=== PATIENT | female | born 1930 | race Caucasian/White ===

== ENCOUNTER 2017-08-13 03:07 | Inpatient (IN) | payer MEDICARE, BC ==
[~2017-08-13] VITALS: Ht 162.6 cm; Wt 61.0 kg
[2017-08-13] MEDS ORDERED: CIPR500T5 PO (03:39)
[2017-08-13] MEDS ORDERED: ALBU18HF2 INH (03:39)
[2017-08-13] MEDS ORDERED: HYDR25TA4 PO (03:39)
[2017-08-13] MEDS ORDERED: METH4TAB16 PO (03:39)
[2017-08-13 04:30] VITALS: BP 166/86
--- NOTE | 2017-08-13 04:40 | NUR ---
Pt. admitted to MHU, under care of Dr. MILLER Belongs List completed
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
[2017-08-13 07:30] VITALS: BP 164/60
[2017-08-13] MEDS: ACETAMINOPHEN 325 MG TABLET PO PRN ×2 (13:16→21:10)
[2017-08-13] MEDS: ESCITALOPRAM OXALATE 10 MG TABLET PO SCH (13:17)
[2017-08-13] MEDS: LORAZEPAM 0.5 MG TABLET PO PRN (13:18)
[2017-08-13] MEDS ORDERED: CLONIDINE HCL 0.1 MG TABLET PO PRN (15:45)
[2017-08-13] MEDS ORDERED: DEXTROSE 50% 50 ML DISP.SYRIN IV PRN (15:45)
[2017-08-13] MEDS: BENAZEPRIL HCL 10 MG TABLET PO SCH (17:45)
[2017-08-13] MEDS: BLOOD SUGAR DIAGNOSTIC 1 EACH STRIP VI SCH ×2 (17:45→20:25)
[2017-08-13] MEDS: INSULIN REGULAR, HUMAN 300 UNIT/3 ML VIAL SQ PRN ×2 (17:55→20:27)
--- NOTE | 2017-08-13 18:20 | NUR ---
EKG ordered, pt has asked to do later and come back later x3.. Now pt is done eating but upset about the food, sts needs time to calm down, CARO Ward notified and aware.. will endorse to NOC shift
[2017-08-13 20:00] VITALS: BP 135/73
[2017-08-13] MEDS: ZOLPIDEM 5 MG TABLET PO PRN (21:11)
--- NOTE | 2017-08-13 22:00 | NUR ---
received to care, lying in bed, confused, but pleasant upon approach. attempted to get out of bed and ambulate in the hallway. staff observed her to be unsteady, so she was placed in the mary chair in the hallway for safetry. she allowed an ekg to be done. PRN ambien was given for insomnia, at 2110, as was PRN tylenol, for left flank pain, 11/08. as of 2199, she is in bed. appears to be asleep. no distress noted. will continue to monitor closely.
--- NOTE | 2017-08-14 02:00 | NUR ---
pt is now awake. assisted to the bathroom, and back to bed. pt is now wheezing. o2 sat is 96% resp 21. denies any shortness of breath, but states she was earlier. HOB elevated. will continue to monitor closely.
[2017-08-14] MEDS: BLOOD SUGAR DIAGNOSTIC 1 EACH STRIP VI SCH ×4 (06:35→21:00)
[2017-08-14 07:13] LABS: BASOPHILS # (AUTO) 0.2 K/uL (0.0-8.0); BASOPHILS % (AUTO) 1.3 % (0.0-2.0); EOSINOPHILS # (AUTO) 0.2 K/uL (0.0-0.7); EOSINOPHILS % (AUTO) 1.4 % (0.0-7.0); HEMATOCRIT 38.6 % (31.2-41.9); LYMPHOCYTES # (AUTO) 3.3 K/uL (20.0-40.0); MEAN CORPUSCULAR HGB CONC 34 g/dL (32.3-35.6); MEAN CORPUSCULAR VOLUME 86.4 fL (75.5-95.3); MONOCYTES % (AUTO) 8.2 % (0.0-11.0); NEUTROPHILS # (AUTO) 7.3 K/uL (1.8-8.9); NEUTROPHILS % (AUTO) 61.1 % (38.5-71.5); PLATELET COUNT (AUTO) 224 K/uL (179-408); RED BLOOD CELL COUNT(AUTO) 4.46 MIL/uL (3.63-4.92); WHITE BLOOD COUNT (AUTO) 11.9 K/uL (3.8-11.8)
[2017-08-14 07:30] VITALS: BP 167/79
[2017-08-14 07:34] LABS: THYROID STIMULATING HORMONE 3.414 mIU/mL (0.358-3.740)
[2017-08-14 07:54] LABS: ALANINE AMINOTRANSFERASE 22 U/L (14-59); ALKALINE PHOSPHATASE 71 U/L (50-136); ASPARTATE AMINOTRANSFERASE 20 U/L (15-37); BILIRUBIN,TOTAL 0.5 mg/dL (0.2-1.0); CARBON DIOXIDE 26 mmol/L (21-32); CHLORIDE 100 mmol/L (98-107); CHOLESTEROL 135 mg/dL (<200); CREATININE 0.8 mg/dL (0.6-1.3); GLUCOSE 169 mg/dL (74-106); HDL CHOLESTEROL 58 mg/dL (40-60); MAGNESIUM 1.9 mg/dL (1.8-2.4); PHOSPHOROUS 3.2 mg/dL (2.5-4.9); POTASSIUM 4.1 mmol/L (3.5-5.1); TOTAL PROTEIN, SERUM 6.3 g/dL (6.4-8.2); TRIGLYCERIDES 71 MG/DL (30-150); UREA NITROGEN, BLOOD 17 mg/dL (7-18)
[2017-08-14] MEDS: INSULIN REGULAR, HUMAN 300 UNIT/3 ML VIAL SQ PRN ×5 (08:17→22:14)
[2017-08-14] MEDS: ESCITALOPRAM OXALATE 10 MG TABLET PO SCH (08:19)
[2017-08-14] MEDS: BENAZEPRIL HCL 10 MG TABLET PO SCH (08:19)
[2017-08-14] MEDS: LORAZEPAM 0.5 MG TABLET PO PRN ×3 (09:10→22:06)
--- NOTE | 2017-08-14 09:20 | NUR ---
Gps/Electrical Development Engineer- Received report from [facility]. patient positive for MRSA of nares. , Dr Bradshaw was called, message was left, waiting for return call.Charge was also informed.
--- NOTE | 2017-08-14 11:29 | NUR ---
Initial Discharge Instructions: Patient currently lives at home alone [[address], [place] [address]; [phone]]. Per pt, she is fearful that she will be "put in a home," and wants to "be as independent as possible." Pt expressed wishes to return home, but was willing to accept Home Health if ordered. Spoke with pt's DPOA, Yanet Sarabia ([phone]) who would like the pt to be as supported as possible. Spoke with pt's neighbor and friend, Paige ([phone]) who expressed that the pt would not want to go to a SNF. SW will continue to collaborate with the pt, support system, and MD regarding appropriate discharge plans for this patient. SW will form a safe and proper discharge plan.
--- NOTE | 2017-08-14 12:06 | NUR ---
Firearms Report: Associate Professor Of Library Media completed and submitted [employer] Firearms Report on 08/14/17.
--- NOTE | 2017-08-14 15:00 | NUR ---
Gps/Division Supervisor- Per Charge Nurse [facility] Dr Bradshaw was made aware of EKG results as well as CXR results .
[2017-08-14 16:00] VITALS: BP 171/73
--- NOTE | 2017-08-14 17:30 | NUR ---
Gps/Classroom Instructor- Stayed in the activity room, watching TV interacting with some of her peers, wearing facial mask on, occ. reminded to keep her facial mask on, bactoban kd. to bilateral nares applied.
--- NOTE | 2017-08-14 18:18 | NUR ---
Gps/Patrol Sergeant- Patient will be transfer to room #224 when room available
[2017-08-14] MEDS: MUPIROCIN 2% OINT 22 GM TUBE NS SCH (21:00)
[2017-08-14 22:00] VITALS: BP 122/60
[2017-08-15 05:00] VITALS: BP 148/65
[2017-08-15] MEDS: BLOOD SUGAR DIAGNOSTIC 1 EACH STRIP VI SCH ×4 (06:27→21:23)
[2017-08-15] MEDS: ACETAMINOPHEN 325 MG TABLET PO PRN ×3 (06:28→21:21)
--- NOTE | 2017-08-15 06:34 | NUR ---
END OF SHIFT SUMMERY: upon receiving the patient, she was agitated and confused A&O X 2. , reorientation provided and ativan was given as prescribed. Pt rested in bed, no distress or SOB noted. pt slept almost 7 hours. sitter 1:1 was maintained all the time. will continue to monitor and endorse patient to the next nurse to cont the care.
--- NOTE | 2017-08-15 06:47 | NUR ---
NURSING CLINICAL NOTE: blood sugar is 166 mg/dl. Will endorse it to the next nurse to follow up.
[2017-08-15] MEDS: ESCITALOPRAM OXALATE 10 MG TABLET PO SCH (08:24)
[2017-08-15] MEDS: BENAZEPRIL HCL 10 MG TABLET PO SCH (08:24)
[2017-08-15] MEDS: INSULIN REGULAR, HUMAN 300 UNIT/3 ML VIAL SQ PRN ×4 (08:29→21:22)
[2017-08-15] MEDS: MUPIROCIN 2% OINT 22 GM TUBE NS SCH ×2 (08:37→21:21)
[2017-08-15 12:12] VITALS: BP 130/60
[2017-08-15] MEDS: LORAZEPAM 0.5 MG TABLET PO PRN (13:23)
--- NOTE | 2017-08-15 14:15 | NUR ---
Patient has been asking about her personal belongings, explained that all her personal belongings are kept/locked at the 1st floor (MHU) for safety, daughter is aware and unable to pickle solution maker her mother's belongings.
[2017-08-15 16:22] VITALS: BP 123/45
--- NOTE | 2017-08-15 18:56 | NUR ---
Patient is on a 5150 HOLD for gravely disabled, expires 08/28/17. Patient is on a 1:1 sitter for safety. Patient is resting in bed, in no distress. Patient occasionally gets agitated, redirectable. Patient is compliant with patient care and medications, adequate meal/fluid intake. Accuchecks done as ordered. Safety measures in place, bed alarm on.
[2017-08-15 21:05] VITALS: BP 145/68
[2017-08-16 03:01] LABS: *BILIRUBIN,URIN NEGATIVE (NEGATIVE); *BLOOD, URINE 1+ (NEGATIVE); *CLARITY,URINE CLOUDY (CLEAR); *COLOR,URINE YELLOW (YELLOW); *KETONES,URINE NEGATIVE (NEGATIVE); *PROTEIN,URINE NEGATIVE (NEGATIVE); *UROBILINOGEN,URINE 0.2 E.U./dl (NORMAL); LEUKOCYTE ESTERASE ,URINE 3+ (NEGATIVE); NITRITE, URINE NEGATIVE (NEGATIVE); UGLUCOSE NEGATIVE (NEGATIVE)
[2017-08-16 03:14] LABS: BACTERIA,URINE MANY /HPF (NONE SEEN); SQUAMOUS EPITHELIAL CELL,UR FEW /HPF (NONE SEEN); WBC,URINE TNTC /HPF (0-3)
[2017-08-16 04:02] VITALS: BP 149/73
--- NOTE | 2017-08-16 05:36 | NUR ---
NURSING CLINICAL NOTE: urine sample sent to the lab, results received, Charge nurse made aware. will endorse it the next nurse to follow up.
--- NOTE | 2017-08-16 06:45 | NUR ---
END OF SHIFT SUMMERY: Pt is calm and cooperative throughout the night, complained of mild headache managed with tylenol. no acute distress noted. sitter 1:1 is maintained all the time. the latest BS reading is 170 mg/dl will endorse it to next nurse to follow up.
[2017-08-16] MEDS: BLOOD SUGAR DIAGNOSTIC 1 EACH STRIP VI SCH ×4 (06:48→20:30)
[2017-08-16] MEDS: METFORMIN HCL 500 MG TABLET PO SCH ×2 (08:04→17:10)
[2017-08-16] MEDS: ESCITALOPRAM OXALATE 10 MG TABLET PO SCH (08:04)
[2017-08-16] MEDS: BENAZEPRIL HCL 10 MG TABLET PO SCH (08:05)
[2017-08-16] MEDS: INSULIN REGULAR, HUMAN 300 UNIT/3 ML VIAL SQ PRN ×4 (08:14→20:39)
[2017-08-16] MEDS: MUPIROCIN 2% OINT 22 GM TUBE NS SCH ×2 (08:28→20:39)
--- NOTE | 2017-08-16 09:11 | NUR ---
MD notified regarding abnormal labs/urine result and bowel regulation. No new orders received at this time. Will continue to monitor.
[2017-08-16 11:36] VITALS: BP 141/55
[2017-08-16] MEDS: LORAZEPAM 0.5 MG TABLET PO PRN (13:31)
[2017-08-16] MEDS: GUAIFENESIN LA 600 MG TABLET.SA PO SCH ×2 (13:31→20:26)
[2017-08-16] MEDS: LEVOFLOXACIN 500 MG TABLET PO SCH (13:31)
[2017-08-16] MEDS: ACETAMINOPHEN 325 MG TABLET PO PRN (15:30)
[2017-08-16 17:16] VITALS: BP 144/64
--- NOTE | 2017-08-16 18:21 | NUR ---
Pt resting in bed, in no distress, c/o of slight discomfort on the left rib, pain medication administered as ordered. Productive cough noted, no SOB, VS stable, afebrile. Patient gets agitated at times, anxious of going home. No other behavioral issues throughout the shift, pt is compliant with patient care and medications. 1:1 sitter provided for safety, bed alarm on.
--- NOTE | 2017-08-16 18:22 | NUR ---
Pt is on 5150 for gravely disabled, expires 08/28/17.
[2017-08-16 19:00] VITALS: BP 145/70
--- NOTE | 2017-08-16 19:50 | NUR ---
RECEIVED PATIENT IN BED, AWAKE, HYPER VERBAL, WANTING TO GO HOME, CONT ON 1;1 SITTER FOR SAFETY, ASSISTED WITH TOILETING, CONT TO MONITOR.
[2017-08-17] MEDS: LORAZEPAM 0.5 MG TABLET PO PRN ×2 (00:09→19:12)
[2017-08-17] MEDS ORDERED: LORAZEPAM 2 MG/1 ML VIAL IM PRN (00:30)
[2017-08-17] MEDS ORDERED: chlorproMAZINE 50 MG/2 ML AMPUL IM ONE (00:30)
--- NOTE | 2017-08-17 00:42 | NUR ---
PATIENT BECOME VERY AGITATED PUNCHING AND KICKING THE SITTER, RESIST CARE, YELLING AND SCREAMING. DR. JASMINE NOTIFIED WITH ORDER.
[2017-08-17] MEDS ORDERED: chlorproMAZINE 50 MG/2 ML AMPUL ONE (00:56)
[2017-08-17 01:05] VITALS: BP 140/65
[2017-08-17 03:59] VITALS: BP 138/59
[2017-08-17] MEDS: BLOOD SUGAR DIAGNOSTIC 1 EACH STRIP VI SCH ×4 (06:23→20:56)
--- NOTE | 2017-08-17 06:30 | NUR ---
PATIENT SLEPT FOR 7 HOURS, PATIENT CALM DOWN AFTER HALF HOURS AFTER PRN MEDICATIONS, PATIENT HAS NO S/S OF ADVERSE REACTION NOTED, CONT 1;1 SITTER FOR SAFETY, CONT TO MONITOR.
[2017-08-17] MEDS: METFORMIN HCL 500 MG TABLET PO SCH ×2 (08:00→17:37)
[2017-08-17] MEDS: GUAIFENESIN LA 600 MG TABLET.SA PO SCH ×2 (08:20→20:56)
[2017-08-17] MEDS: BENAZEPRIL HCL 10 MG TABLET PO SCH ×2 (08:20→19:12)
[2017-08-17] MEDS: MUPIROCIN 2% OINT 22 GM TUBE NS SCH ×2 (08:20→20:57)
[2017-08-17] MEDS: ESCITALOPRAM OXALATE 10 MG TABLET PO SCH (08:20)
--- NOTE | 2017-08-17 08:21 | NUR ---
PT IS LABILE, AGITATED, DEMANDING CLOTHES AND PURSE TO [facility] FROM THE HOSPITAL. PT REFUSING CARE AND MEDICATION AT THIS TIME. ATIVAN OFFERED FOR ANXIETY PT CONTINUES TO REFUSE MEDICATION. PT OFFERED SELF TO EXPRESS FEELINGS. PT REFUSED THERAPEUTIC MEASURES. 1:1 SITTER AT BEDSIDE. CONTINUE TO MONITOR.
[2017-08-17] MEDS: risperiDONE 0.5 MG TABLET PO SCH ×2 (09:00→18:18)
[2017-08-17] MEDS ORDERED: OLANZAPINE 10 MG VIAL IM ONE (09:00)
--- NOTE | 2017-08-17 09:00 | NUR ---
PT RECEIVING AN IM INJ OF ZYPREXA. GAVE VERBAL INSTRUCTIONS TO HOLD THE RISPERDAL AM DOSE.
--- NOTE | 2017-08-17 11:30 | NUR ---
PT REFUSES CARE AND ACCU CHECK AT THIS TIME. PT SHOWS NO S/S OF HYPO OR HYPER GLYCEMIA AT THIS TIME. 1:1 SITTER AT BEDSIDE. CONTINUE TO MONITOR.
[2017-08-17] MEDS: LEVOFLOXACIN 500 MG TABLET PO SCH (13:12)
[2017-08-17] MEDS: ASPIRIN EC 81 MG TABLET.DR PO SCH (13:15)
[2017-08-17] MEDS: INSULIN REGULAR, HUMAN 300 UNIT/3 ML VIAL SQ PRN ×2 (17:39→21:02)
[2017-08-17 17:49] VITALS: BP 150/59
--- NOTE | 2017-08-17 18:49 | NUR ---
PT OBSERVED RESTING IN BED, ALLOWED SOME CARE AND TOOK SOME MEDICATION NEAR THE END OF SHIFT. PT SHOWS NO SIGNS OF RESPIRATORY DISTRESS AT THIS TIME. CONTINUES TO BE FIXATED TO GO HOME. CONTINUE TO MONITOR PT.
--- NOTE | 2017-08-17 19:45 | NUR ---
RECEIVED PATIENT IN BED, NO SOB NO CHEST PAIN, PATIENT CALM AT THIS TIME, ASSISTED WITH TOILETING, CONT 1;1 SITTER FOR SAFETY, NO S/S OF FURTHER BEHAVIORAL PROBLEM NOTED AT THIS TIME. CONT TO MONITOR.
[2017-08-17 20:32] VITALS: BP 112/49
--- NOTE | 2017-08-17 23:20 | NUR ---
PATIENT STILL AWAKE, TOSSING AND TURNING WHILE IN BED, NO COMPLAIN OF PAIN, ASSISTED WITH TOILETING, PATIENT GIVEN AMBIEN FOR SLEEP, CONT 1;1 SITTER, TAUGHT TO SEATED TO CAREFULLY WATCH THE PATIENT, AND ASSIST PATIENT WITH TOILETING. CONT TO MONITOR.
[2017-08-17] MEDS: ZOLPIDEM 5 MG TABLET PO PRN (23:42)
[2017-08-18 04:43] VITALS: BP 112/42
--- NOTE | 2017-08-18 05:42 | NUR ---
PATIENT SLEPT MOST OF THE NIGHT, ASSISTED WITH TOILETING, PATIENT COOPERATIVE WITH CARE AT THIS TIME, CONT 1;1 SITTER FOR SAFETY. KEPT CLEAN AND DRY. NO COMPLAIN OF PAIN. CONT TO MONITOR.
[2017-08-18] MEDS: BLOOD SUGAR DIAGNOSTIC 1 EACH STRIP VI SCH ×4 (06:22→20:23)
--- NOTE | 2017-08-18 07:42 | NUR ---
PATIENT RESTING COMFORTABLY IN BED AT THIS TIME, NO S/S OF DISTRESS, STABLE CONDITION. 1:1 SITTER AT BEDSIDE FOR SAFETY. PATIENT IS CONFUSED. WAS TOLD SHE CAN BE COMBATIVE. SAFETY PRECAUTIONS WILL BE IMPLEMENTED. BED IN LOCKED/LOW POSITION, SIDE RAILS UPX2, BED ALARM ON. REORIENTATION WILL BE INITIATED NEEDED THROUGHOUT SHIFT.
[2017-08-18] MEDS: GUAIFENESIN LA 600 MG TABLET.SA PO SCH ×2 (08:09→20:19)
[2017-08-18] MEDS: ASPIRIN EC 81 MG TABLET.DR PO SCH (08:10)
[2017-08-18] MEDS: risperiDONE 0.5 MG TABLET PO SCH ×2 (08:10→17:03)
[2017-08-18] MEDS: METFORMIN HCL 500 MG TABLET PO SCH ×2 (08:10→17:03)
[2017-08-18] MEDS: ESCITALOPRAM OXALATE 10 MG TABLET PO SCH (08:10)
[2017-08-18] MEDS: BENAZEPRIL HCL 10 MG TABLET PO SCH (08:10)
[2017-08-18] MEDS: INSULIN REGULAR, HUMAN 300 UNIT/3 ML VIAL SQ PRN ×3 (08:14→20:29)
[2017-08-18] MEDS: glipiZIDE 5 MG TABLET PO SCH ×2 (08:16→17:03)
[2017-08-18 08:27] VITALS: BP 125/55
[2017-08-18] MEDS: MUPIROCIN 2% OINT 22 GM TUBE NS SCH ×2 (09:17→22:50)
[2017-08-18 12:34] VITALS: BP 130/68
--- NOTE | 2017-08-18 13:10 | NUR ---
PATIENT HAS BEEN RESTING COMFORTABLY IN BED SO FAR THROUGH SHIFT. COOPERATIVE, NON-COMBATIVE. DEPRESSED/LABILE MOOD. STABLE CONDITION, NO S/S OF DISTRESS. BLOOD SUGAR MANAGEMENT PROVIDED. 1:1 SITTER BEDSIDE.
[2017-08-18] MEDS: LEVOFLOXACIN 500 MG TABLET PO SCH (13:16)
[2017-08-18 16:21] VITALS: BP 102/44
--- NOTE | 2017-08-18 19:30 | NUR ---
PATIENT IN BED ALERT, NO SOB NO CHEST PAIN NO COMPLAIN OF PAIN AT THIS TIME, NO BEHAVIORAL PROBLEM NOTED, AT THIS TIME. CONT 1;1 SITTER FOR SAFETY. CONT TO MONITOR.
[2017-08-18] MEDS: AMPICILLIN 250 MG CAPSULE PO SCH (20:19)
[2017-08-18 20:21] VITALS: BP 110/68
[2017-08-19] MEDS: AMPICILLIN 250 MG CAPSULE PO SCH ×5 (01:14→23:36)
[2017-08-19] MEDS: BLOOD SUGAR DIAGNOSTIC 1 EACH STRIP VI SCH ×4 (05:48→21:10)
--- NOTE | 2017-08-19 05:50 | NUR ---
PATIENT SLEPT 8 HRS, NO SOB NO CHEST PAIN, ASSISTED WITH TOILETING. STILL WITH SLIGHT MOIST COUGH, RT ASSESSED PATIENT FOR CONGESTION, BUT LUNGS SOUND CLEAR A THIS TIME, CONT 1;1 SITTER FOR SAFETY, CONT TO MONITOR. NO BEHAVIORAL PROBLEM NOTED TODAY.
[2017-08-19 06:41] LABS: BASOPHILS # (AUTO) 0.1 K/uL (0.0-8.0); BASOPHILS % (AUTO) 0.7 % (0.0-2.0); EOSINOPHILS # (AUTO) 0.2 K/uL (0.0-0.7); HEMATOCRIT 36.8 % (31.2-41.9); HEMOGLOBIN 12.2 g/dL (10.9-14.3); LYMPHOCYTES # (AUTO) 3.5 K/uL (20.0-40.0); LYMPHOCYTES % (AUTO) 19.8 % (20.5-51.5); MEAN CORPUSCULAR HEMOGLOBIN 28.7 uug (24.7-32.8); MEAN CORPUSCULAR HGB CONC 33 g/dL (32.3-35.6); MEAN CORPUSCULAR VOLUME 86.6 fL (75.5-95.3); MONOCYTES # (AUTO) 1.5 K/uL (2.0-10.0); MONOCYTES % (AUTO) 8.5 % (0.0-11.0); NEUTROPHILS # (AUTO) 12.2 K/uL (1.8-8.9); PLATELET COUNT (AUTO) 319 K/uL (179-408); RED BLOOD CELL COUNT(AUTO) 4.24 MIL/uL (3.63-4.92); WHITE BLOOD COUNT (AUTO) 17.5 K/uL (3.8-11.8)
[2017-08-19 06:45] LABS: CARBON DIOXIDE 25 mmol/L (21-32); CHLORIDE 98 mmol/L (98-107); CREATININE 1.2 mg/dL (0.6-1.3); GLUCOSE 126 mg/dL (74-106); POTASSIUM 4.5 mmol/L (3.5-5.1); UREA NITROGEN, BLOOD 27 mg/dL (7-18)
--- NOTE | 2017-08-19 07:00 | NUR ---
RECEIVED PATIENT ON BED, A AND O X 3, SABLE TO MAKE NEEDS KNOWN. NO ACUTE DISTRESS NOTED. ON CONTACT ISOLATION FOR MRSA OF THE NARES, CONTACT PRECAUTIONS OBSERVED AT ALL TIMES. PRODUCTIVE COUGH PRESENT, SPUTUM WHITISH COLOR. NO COMPLAINTS OF PAIN AND DISCOMFORT AT THIS TIME. COMFORT MEASURES PROVIDED. CALL LIGHT WITHIN REACH. WILL CONT TO MONITOR CLOSELY.
[2017-08-19 08:00] VITALS: BP 148/64
[2017-08-19] MEDS: GUAIFENESIN LA 600 MG TABLET.SA PO SCH ×2 (08:55→21:10)
[2017-08-19] MEDS: ESCITALOPRAM OXALATE 10 MG TABLET PO SCH (08:55)
[2017-08-19] MEDS: risperiDONE 0.5 MG TABLET PO SCH ×2 (08:56→16:55)
[2017-08-19] MEDS: MUPIROCIN 2% OINT 22 GM TUBE NS SCH ×2 (08:56→21:09)
[2017-08-19] MEDS: METFORMIN HCL 500 MG TABLET PO SCH ×2 (08:56→17:00)
[2017-08-19] MEDS: ASPIRIN EC 81 MG TABLET.DR PO SCH (08:56)
[2017-08-19] MEDS: glipiZIDE 5 MG TABLET PO SCH ×2 (08:56→16:50)
[2017-08-19] MEDS: BENAZEPRIL HCL 10 MG TABLET PO SCH (08:58)
--- NOTE | 2017-08-19 09:00 | NUR ---
SEEN AND EXAMINED BY ANGELA DERAS, SAID THAT PATIENT IS STABLE PER PSYCH AND IS WAITING TO BE CLEARED FROM MEDICAL DOCTOR, MAY POSSIBLY GO HOME TOMORROW. WILL FOLLOW UP WITH MEDICAL DOCTOR.
[2017-08-19] MEDS: INSULIN REGULAR, HUMAN 300 UNIT/3 ML VIAL SQ PRN (11:11)
[2017-08-19] MEDS: LEVOFLOXACIN 500 MG TABLET PO SCH (13:15)
[2017-08-19] MEDS: METRONIDAZOLE 500 MG TABLET PO SCH ×2 (13:15→21:50)
[2017-08-19 15:30] VITALS: BP 131/47
--- NOTE | 2017-08-19 19:20 | NUR ---
RECEIVED PT AWAKE ON BED. PT FEEL ANXIOUS. PT ASKING WHY SHE IS IN THE HOSPITAL STILL. ALERT, ORIENTEDX2. KNOWS HER NAME. PT SHOWS NO SIGNS OF DISTRESS. WILL CONTINUE TO MONITOR.
[2017-08-19 20:14] VITALS: BP 121/73
[2017-08-19] MEDS: LORAZEPAM 0.5 MG TABLET PO PRN (21:10)
[2017-08-20 04:00] VITALS: BP 114/50
[2017-08-20] MEDS: METRONIDAZOLE 500 MG TABLET PO SCH ×2 (05:23→13:11)
[2017-08-20] MEDS: AMPICILLIN 250 MG CAPSULE PO SCH ×4 (05:23→23:34)
[2017-08-20] MEDS: ZOLPIDEM 5 MG TABLET PO PRN (05:28)
[2017-08-20 06:04] LABS: BASOPHILS # (AUTO) 0.1 K/uL (0.0-8.0); BASOPHILS % (AUTO) 0.4 % (0.0-2.0); EOSINOPHILS # (AUTO) 0.1 K/uL (0.0-0.7); HEMATOCRIT 39.3 % (31.2-41.9); HEMOGLOBIN 13.1 g/dL (10.9-14.3); LYMPHOCYTES # (AUTO) 2.2 K/uL (20.0-40.0); LYMPHOCYTES % (AUTO) 16.8 % (20.5-51.5); MEAN CORPUSCULAR HGB CONC 33 g/dL (32.3-35.6); MEAN CORPUSCULAR VOLUME 86.6 fL (75.5-95.3); MONOCYTES # (AUTO) 1.2 K/uL (2.0-10.0); MONOCYTES % (AUTO) 9.1 % (0.0-11.0); NEUTROPHILS # (AUTO) 9.4 K/uL (1.8-8.9); NEUTROPHILS % (AUTO) 72.7 % (38.5-71.5); PLATELET COUNT (AUTO) 358 K/uL (179-408); RED BLOOD CELL COUNT(AUTO) 4.53 MIL/uL (3.63-4.92)
[2017-08-20 06:11] LABS: CARBON DIOXIDE 25 mmol/L (21-32); CHLORIDE 97 mmol/L (98-107); GLUCOSE 157 mg/dL (74-106); POTASSIUM 3.8 mmol/L (3.5-5.1); UREA NITROGEN, BLOOD 17 mg/dL (7-18)
[2017-08-20] MEDS: glipiZIDE 5 MG TABLET PO SCH ×2 (06:41→16:24)
[2017-08-20] MEDS: BLOOD SUGAR DIAGNOSTIC 1 EACH STRIP VI SCH ×4 (06:41→20:17)
--- NOTE | 2017-08-20 06:52 | NUR ---
PT DIDN'T SLEEP. PT DOESN'T WANT TO TAKE AMBIEN AT NIGHT TIME. PT AGITATED WHEN YOU ASK HER QUESTIONS. PT IN NO ACUTE DISTRESS. SITTER AT BEDSIDE. PRESCRIBED MEDICATION GIVEN . PT TOLERATED IT WELL. CALL LIGHT WITHIN REACH. BED ALARM ON AND IN LOW POSITION. WILL ENDORSE TO DAYSHIFT NURSE.
[2017-08-20] MEDS: METFORMIN HCL 500 MG TABLET PO SCH ×2 (07:12→17:00)
--- NOTE | 2017-08-20 07:30 | NUR ---
RECEIVED PT AWAKE ON BED. PT FEEL ANXIOUS. PT ASKING WHY SHE IS IN THE HOSPITAL STILL. ALERT, ORIENTEDX2. KNOWS HER NAME. PT SHOWS NO SIGNS OF DISTRESS. WILL CONTINUE TO MONITOR. SITTER AT BED SIDE FOR SAFETY
[2017-08-20] MEDS: INSULIN REGULAR, HUMAN 300 UNIT/3 ML VIAL SQ PRN ×3 (07:36→20:19)
[2017-08-20 07:54] VITALS: BP 129/74
[2017-08-20] MEDS: GUAIFENESIN LA 600 MG TABLET.SA PO SCH ×2 (08:05→20:12)
[2017-08-20] MEDS: risperiDONE 0.5 MG TABLET PO SCH ×2 (08:05→16:24)
[2017-08-20] MEDS: ESCITALOPRAM OXALATE 10 MG TABLET PO SCH (08:05)
[2017-08-20] MEDS: BENAZEPRIL HCL 10 MG TABLET PO SCH (08:05)
[2017-08-20] MEDS: ASPIRIN EC 81 MG TABLET.DR PO SCH (08:06)
[2017-08-20] MEDS: MUPIROCIN 2% OINT 22 GM TUBE NS SCH ×2 (08:06→20:12)
[2017-08-20 11:39] VITALS: BP 107/66
[2017-08-20] MEDS: LEVOFLOXACIN 500 MG TABLET PO SCH (13:09)
[2017-08-20 16:13] VITALS: BP 145/65
[2017-08-20 20:09] VITALS: BP 128/65
--- NOTE | 2017-08-20 22:30 | NUR ---
1:1 sitter at bedside for safety. Noted to be resting in bed. No s/s of distress noted. Will continue to monitor.
[2017-08-21] MEDS: BLOOD SUGAR DIAGNOSTIC 1 EACH STRIP VI SCH ×2 (06:24→11:36)
[2017-08-21] MEDS: AMPICILLIN 250 MG CAPSULE PO SCH ×2 (06:24→11:36)
--- NOTE | 2017-08-21 07:04 | NUR ---
Pt noted to be AAO x 2 and slept for a total of 7 hours. No distress noted throughout the night. Compliant with all care. 1:1 sitter at bedside for safety.
--- NOTE | 2017-08-21 07:30 | NUR ---
Received patient sleeping on her left side with the HOB in a flat position, no apparent s/s of SOB, pain, distress or discomfort. No IV hydration running at this time. Bed at lowest position for safety and all light within reach for assistance
[2017-08-21] MEDS: glipiZIDE 5 MG TABLET PO SCH (07:45)
[2017-08-21] MEDS: METFORMIN HCL 500 MG TABLET PO SCH (07:45)
[2017-08-21] MEDS: ASPIRIN EC 81 MG TABLET.DR PO SCH (08:40)
[2017-08-21] MEDS: ESCITALOPRAM OXALATE 10 MG TABLET PO SCH (08:41)
[2017-08-21] MEDS: risperiDONE 0.5 MG TABLET PO SCH (08:41)
[2017-08-21] MEDS: GUAIFENESIN LA 600 MG TABLET.SA PO SCH (08:43)
[2017-08-21] MEDS: MUPIROCIN 2% OINT 22 GM TUBE NS SCH (08:44)
[2017-08-21] MEDS: BENAZEPRIL HCL 10 MG TABLET PO SCH (08:45)
[2017-08-21] MEDS: ACETAMINOPHEN 325 MG TABLET PO PRN (08:54)
[2017-08-21 09:23] VITALS: BP 125/43
--- NOTE | 2017-08-21 10:36 | NUR ---
Discharge Note: Patient will be discharged back home [[address] [place] [address]; [phone]] via [facility] at 2pm. Spoke with Selina at [facility] ([phone]), who states they are willing to provide transportation for the patient. Spoke with Belly Packer, Sarah Will who is aware and approved transport. Spoke with patients DPOA, Yanet Sarabia, ([phone]) who is aware and agreeable with discharge plans. Spoke with and left messages for pts friends and neighbors, Bijan Valdivia ([phone]) and Rambo Nelson ([phone]) to alert about patients discharge. Spoke with Diana at [facility] ([phone]) who states they approved patient for Home Health Care of PT/OT and medication management. Start of care will begin on 08/22/17. Patient is aware and agreeable with discharge plan. Patient will continue to follow-up with her Primary Care Physician, Dr. Edmond Madera [[id number], [place] [address]; ]. Patient was also given list of Medicare-accepting Psychiatrists in her area. Patient was given referrals for in-home care giving for [facility] and [facility]. Patient was given referrals to [facility] ([phone]), as well as the Outreach Services in her area ([phone]).
[2017-08-21] MEDS: INSULIN REGULAR, HUMAN 300 UNIT/3 ML VIAL SQ PRN (12:54)
[2017-08-21] MEDS: LEVOFLOXACIN 500 MG TABLET PO SCH (13:17)
--- NOTE | 2017-08-21 13:30 | NUR ---
Patient was picked up will I was on break, I was informed by the nursing assistance that they were picking her, by the time I went to her room the patient was not there any more. She had left the med-surg unit
--- NOTE | 2017-08-21 13:30 | NUR ---
Pt was picked up by [facility]. Patient was discharged with orders and in a stable condition, no apparent s/s of SOB, pain, distress or discomfort. Personal belongings and discharge papers signed by patient, instruction given and patient replied she understood and verbalized understanding. New medication prescription given to patient and states she understood to get them filled. Patient was compliant with medications and nursing care.
[2017-08-21] MEDS ORDERED: DONEPEZIL 5 MG TABLET PO SCH (21:00)
== END 2017-08-21 14:30 | disposition home health service (06) | DRG 881 ==
LOC: ER 03:21 → GPS 03:50 → MED 08-14 20:17 → GPSOV 08-14 23:04
PROVIDERS: ADMIT Psychiatry & Neurology Psychiatry; ATTEND Internal Medicine
DX: F32.9 Major depressive disorder, single episode, unspecified (principal); F02.81 Dementia in other diseases classified elsewhere, unspecified severity, with behavioral disturbance; E43 Unspecified severe protein-calorie malnutrition; B95.2 Enterococcus as the cause of diseases classified elsewhere; E11.65 Type 2 diabetes mellitus with hyperglycemia; G93.41 Metabolic encephalopathy; G30.9 Alzheimer's disease, unspecified; N39.0 Urinary tract infection, site not specified; I11.9 Hypertensive heart disease without heart failure; J98.11 Atelectasis; Z91.81 History of falling; Z22.322 Carrier or suspected carrier of Methicillin resistant Staphylococcus aureus; Z88.6 Allergy status to analgesic agent; Z88.1 Allergy status to other antibiotic agents; Z88.8 Allergy status to other drugs, medicaments and biological substances; J20.9 Acute bronchitis, unspecified; Z87.01 Personal history of pneumonia (recurrent); Z86.73 Personal history of transient ischemic attack (TIA), and cerebral infarction without residual deficits; I25.10 Atherosclerotic heart disease of native coronary artery without angina pectoris; Z68.23 Body mass index [BMI] 23.0-23.9, adult; Z74.09 Other reduced mobility; M19.90 Unspecified osteoarthritis, unspecified site; Z95.0 Presence of cardiac pacemaker; F41.9 Anxiety disorder, unspecified
CPT/HCPCS: 36415; 70450; 71045; 83735; 84100; 84443; 85025; 87070; 87077; 87086; 93005; A4663; J1815; J2060; J2358; J3230; J8499